=== PATIENT | female | born 2000 | race Hispanic/Latino ===

== ENCOUNTER 2023-07-24 12:01 | Observation (INO) | payer OTHER, SELFPAY ==
[2023-07-24 13:24] LABS: Absolute Lymphocytes (CBC) 2.2 K/uL (0.7-4.9); Lymphocytes % 10.7 % (15.3-44.8); MPV 7.9 fL (7.6-11.3); Platelets 327 thou/uL (152-406)
[2023-07-24 13:27] LABS: Specific Gravity > 1.030 (1.005-1.030)
[2023-07-24 13:29] LABS: Specific Gravity > 1.030 (1.005-1.030); Urine Bacteria None Seen /HPF (<20); Urine Bilirubin NEGATIVE (Negative); Urine Blood 2+ (Negative); Urine Clarity Extremely Turbid (Clear); Urine Color Yellow (Yellow); Urine Glucose NEGATIVE (Negative); Urine Mucus 3+ /HPF (None Seen); Urine Protein 2+ (Negative); Urine RBC >50 /HPF (None Seen); Urine Urobilinogen 1+ (Normal); Urine pH 6.5 (5.0-7.0)
[2023-07-24 14:30] LABS: Blood Morphology Comment NOT SEEN (NOT SEEN); Platelet Estimate ADEQ; White Blood Cell Scan OK (OK)
--- NOTE | 2023-07-24 14:31 | RAD REPORT ---
EXAM DESCRIPTION: CT - Abdomen Pelvis W Contrast - 07/24/2023 2:20 pm CLINICAL HISTORY: Abdominal pain COMPARISON: none. TECHNIQUE: Computed axial tomography of the abdomen pelvis was obtained. 100 cc Isovue-300 was admin istered intravenously. Oral contrast was not requested which limits evaluation of bowel and appendix All CT scans are performed using dose optimization technique as appropriate and may include automated exposure control or mA/KV adjustment according to patient size. FINDINGS: The liver, spleen, pancreas, adrenal and kidneys appear unremarkable. There is no evidence of diverticulitis. The appendix is retrocecal and extends superiorly. The appendix is thickened with stranding in the ad jacent fat as well as a small amount of ill-defined fluid. No abscess IMPRESSION: Appendicitis
[2023-07-24] MEDS ORDERED: NA CHLORIDE 0.9% 2,000 ML ONE (14:50)
[2023-07-24] MEDS ORDERED: KETOROLAC 30 MG/ML INJ ONE ×2 (14:50→16:51)
[2023-07-24] MEDS ORDERED: ONDANSETRON 4 MG/2 ML VIAL ONE ×2 (14:50→17:48)
[2023-07-24] MEDS ORDERED: CEFEPIME 1 GM/VIAL ONE (14:51)
[2023-07-24] MEDS ORDERED: NA CHLORIDE 0.9% 100 ML ONE (14:51)
--- NOTE | 2023-07-24 15:29 | ER ---
Nurse's Notes [facility] Name: Sravanthi Rogers Age: 22 yrs Sex: Female : 2000 Arrival Date: 07/24/2023 Time: 12:01 Bed 14 Private MD: Diagnosis: Acute appendicitis with localized peritonitis Presentation: 07/24 12:14 Chief complaint: Patient states: lower abdominal cramping onset last night. Pt states cm10 that her pain feels like contractions. Pt denies any urinary symptoms. Pt states 2 episodes of vomiting last night and 1 episode of diarrhea today. Coronavirus screen: Vaccine status: Patient reports being unvaccinated. Client denies travel out of the [place] in the last 14 days. Ebola Screen: Patient denies travel to an Ebola-affected area in the 21 days before illness onset. No symptoms or risks identified at this time. Initial Sepsis Screen: Does the patient meet any 2 criteria? No. Patient's initial sepsis screen is negative. Does the patient have a suspected source of infection? No. Patient's initial sepsis screen is negative. Risk Assessment: Do you want to hurt yourself or someone else? Patient reports no desire to harm self or others. Onset of symptoms was July 24, 2023. 12:14 Method Of Arrival: Ambulatory cm10 12:14 Acuity: SILVINA 3 cm10 Historical: - Allergies: 12:15 No Known Allergies; cm10 - Home Meds: 12:15 None [Active]; cm10 - PMHx: 12:15 None; cm10 - Immunization history:: Adult Immunizations unknown. - Social history:: Smoking status: Reported history of juuling and/or vaping. - Family history:: not pertinent, Mother has/had new symptoms. Screenin:45 Tuberculosis screening: No symptoms or risk factors identified. db 15:48 [facility] ED Fall Risk Assessment (Adult) History of falling in the last 3 months, db including since admission No falls in past 3 months (0 pts) Confusion or Disorientation No (0 pts) Score/Fall Risk Level 0 - 2 = Low Risk Oriented to surroundings, Maintained a safe environment. Abuse screen: Denies threats or abuse. Denies injuries from another. Nutritional screening: No deficits noted. Assessment: 13:45 Reassessment: Patient appears in no apparent distress at this time. Patient and/or db family updated on plan of care and expected duration. Pain level reassessed. Patient is alert, oriented x 3, equal unlabored respirations, skin warm/dry/pink. PATIENT TO THIS ROOM. 14:50 General: Appears uncomfortable, Behavior is cooperative, anxious. Pain: Complains of db pain in abdomen. Neuro: Level of Consciousness is awake, alert, obeys commands, Oriented to person, place, time, situation. GI: Bowel sounds Abd is soft Abdomen is tender to palpation in right lower quadrant and left lower quadrant Reports cramping. 15:46 Reassessment: Patient appears in no apparent distress at this time. Patient and/or db family updated on plan of care and expected duration. Pain level reassessed. Patient is alert, oriented x 3, equal unlabored respirations, skin warm/dry/pink. Vital Signs: 12:14 BP 143 / 67; Pulse 93; Resp 18; Temp 97.1; Pulse Ox 100% ; Weight 104.33 kg; Height 5 cm10 ft. 5 in. ; Pain 9/10; 14:11 BP 139 / 74; Pulse 84; Resp 16; Pulse Ox 99% on R/A; db 15:00 BP 144 / 78; Pulse 82; Resp 16; Pulse Ox 100% on R/A; db 12:14 Body Mass Index 38.27 (104.33 kg, 165.1 cm) cm10 12:14 Pain Scale: Adult cm10 ED Course: 12:02 Patient arrived in ED. rg4 12:02 Madison Osborn MD is Attending Physician. cp3 12:15 Triage completed. cm10 12:16 Arm band placed on Patient placed in an exam room, on a stretcher. cm10 13:12 CBC with Diff Sent. cm10 13:12 CMP Sent. cm10 13:12 Lipase Sent. cm10 13:12 Test, Urine Sent. cm10 13:12 Urinalysis w/ reflexes Sent. cm10 13:13 Inserted saline lock: 20 gauge in left antecubital area, using aseptic technique. Blood cm10 collected. 13:26 Zeny Calvert, JR is Primary Nurse. db 14:22 CT Abd/Pelvis - IV Contrast Only In Process Unspecified. EDMS 15:27 Sang De Los Santos MD is Hospitalizing Provider. cp3 15:48 No provider procedures requiring assistance completed. Patient admitted, IV remains in db place. Administered Medications: 14:30 Drug: NS 0.9% IV 1000 ml IV at 1 bolus Per protocol; 1000 mL bolus Route: IV; Rate: 1 db bolus; Site: left antecubital; 15:46 Follow up: Response: No adverse reaction; IV Status: Completed infusion db 14:30 Drug: TORadol - Ketorolac IVP 15 mg IVP once Route: IVP; Site: left antecubital; db 15:46 Follow up: Response: No adverse reaction db 14:30 Drug: Ondansetron IVP 4 mg IVP once; over 2 minutes Route: IVP; Site: left antecubital; db 15:46 Follow up: Response: No adverse reaction db 14:30 Drug: NS 0.9% IV 1000 ml IV at 1 bolus Per protocol; 1000 mL bolus Route: IV; Rate: 1 db bolus; Site: left antecubital; 15:45 Follow up: Response: No adverse reaction; IV Status: Completed infusion db 15:12 Drug: Cefepime IVPB 1 grams IVPB at 200 ml/hr once over 30 mins; (mix in NS 100 mL) db Route: IVPB; Rate: 200 ml/hr; Infused Over: 30 mins; Site: left antecubital; 15:35 Follow up: Response: No adverse reaction; IV Status: Completed infusion; IV Intake: db 100ml 15:35 Drug: metroNIDAZOLE IVPB 500 mg 100 ml IVPB at 200 ml/hr once over 30 mins Volume: 100 db ml; Route: IVPB; Rate: 200 ml/hr; Infused Over: 30 mins; Site: left antecubital; 15:45 Follow up: IV Status: Infusion continued upon admission db 15:35 Drug: morphine IVP or IV 4 mg IVP once over 4 mins Route: IVP; Infused Over: 4 mins; db Site: left antecubital; 15:45 Follow up: Response: No adverse reaction db Intake: 15:35 IV: 100ml; Total: 100ml. db Outcome: 15:28 Decision to Hospitalize by Provider. cp3 15:46 Patient left the ED. eb 15:48 Admitted to OR accompanied by nurse, via stretcher, with chart, db 15:48 Condition: stable 15:48 Instructed on the need for admit, Signatures: Dispatcher [employer] Madison Garner, MD MD cp3 Alex, Emely rg4 Tatiana Scruggs Danielle, RN RN db Ivelisse Miles RN RN cm10
--- NOTE | 2023-07-24 15:29 | EDPHYS ---
Physician Documentation [facility] Name: Sravanthi Rogers Age: 22 yrs Sex: Female : 2000 Arrival Date: 07/24/2023 Time: 12:01 Bed 14 Private MD: ED Physician Madison Osborn HPI: 07/24 12:28 This 22 yrs old Female presents to ER via Ambulatory with complaints of cp3 Abdominal Pain, Vomiting. 12:28 The patient presents to the emergency department with nausea, vomiting, abdominal pain. cp3 Onset: The symptoms/episode began/occurred suddenly, 1 day(s) ago. Possible causes: unknown. The symptoms are aggravated by nothing. The symptoms are alleviated by nothing. Associated signs and symptoms: Pertinent positives: abdominal pain, nausea. Severity of symptoms: At their worst the symptoms were moderate in the emergency department the symptoms are unchanged Pain is currently a 5 / 10. The patient has not experienced similar symptoms in the past. Historical: - Allergies: 12:15 No Known Allergies; cm10 - Home Meds: 12:15 None [Active]; cm10 - PMHx: 12:15 None; cm10 - Immunization history:: Adult Immunizations unknown. - Social history:: Smoking status: Reported history of juuling and/or vaping. - Family history:: not pertinent, Mother has/had new symptoms. ROS: 12:28 Eyes: Negative for injury, pain, redness, and discharge, ENT: Negative for injury, cp3 pain, and discharge, Neck: Negative for injury, pain, and swelling, Cardiovascular: Negative for chest pain, palpitations, and edema, Respiratory: Negative for shortness of breath, cough, wheezing, and pleuritic chest pain, Back: Negative for injury and pain, : Negative for injury, bleeding, discharge, and swelling, MS/Extremity: Negative for injury and deformity, Skin: Negative for injury, rash, and discoloration, Neuro: Negative for headache, weakness, numbness, tingling, and seizure, Psych: Negative for depression, anxiety, suicide ideation, homicidal ideation, and hallucinations, Allergy/Immunology: Negative for hives, rash, and allergies, Endocrine: Negative for neck swelling, polydipsia, polyuria, polyphagia, and marked weight changes, Hematologic/Lymphatic: Negative for swollen nodes, abnormal bleeding, and unusual bruising, 12:28 Constitutional: Positive for body aches, chills, fatigue, poor PO intake, 12:28 Abdomen/GI: Positive for abdominal pain, nausea and vomiting, Exam: 12:28 Constitutional: This is a well developed, well nourished patient who is awake, alert, cp3 and in no acute distress. Head/Face: Normocephalic, atraumatic. Eyes: Pupils equal round and reactive to light, extra-ocular motions intact. Lids and lashes normal. Conjunctiva and sclera are non-icteric and not injected. Cornea within normal limits. Periorbital areas with no swelling, redness, or edema. ENT: Nares patent. No nasal discharge, no septal abnormalities noted. Tympanic membranes are normal and external auditory canals are clear. Oropharynx with no redness, swelling, or masses, exudates, or evidence of obstruction, uvula midline. Mucous membranes moist. Neck: Trachea midline, no thyromegaly or masses palpated, and no cervical lymphadenopathy. Supple, full range of motion without nuchal rigidity, or vertebral point tenderness. No Meningismus. Chest/axilla: Normal chest wall appearance and motion. Nontender with no deformity. No lesions are appreciated. Cardiovascular: Regular rate and rhythm with a normal S1 and S2. No gallops, murmurs, or rubs. Normal PMI, no JVD. No pulse deficits. Respiratory: Lungs have equal breath sounds bilaterally, clear to auscultation and percussion. No rales, rhonchi or wheezes noted. No increased work of breathing, no retractions or nasal flaring. Back: No spinal tenderness. No costovertebral tenderness. Full range of motion. Skin: Warm, dry with normal turgor. Normal color with no rashes, no lesions, and no evidence of cellulitis. MS/ Extremity: Pulses equal, no cyanosis. Neurovascular intact. Full, normal range of motion. Neuro: Awake and alert, GCS 15, oriented to person, place, time, and situation. Cranial nerves II-XII grossly intact. Motor strength 5/5 in all extremities. Sensory grossly intact. Cerebellar exam normal. Normal gait. Psych: Awake, alert, with orientation to person, place and time. Behavior, mood, and affect are within normal limits. 12:28 Abdomen/GI: mild lower abdominal tenderness, no guarding or rebound, Vital Signs: 12:14 BP 143 / 67; Pulse 93; Resp 18; Temp 97.1; Pulse Ox 100% ; Weight 104.33 kg; Height 5 cm10 ft. 5 in. ; Pain 9/10; 14:11 BP 139 / 74; Pulse 84; Resp 16; Pulse Ox 99% on R/A; db 15:00 BP 144 / 78; Pulse 82; Resp 16; Pulse Ox 100% on R/A; db 12:14 Body Mass Index 38.27 (104.33 kg, 165.1 cm) cm10 12:14 Pain Scale: Adult cm10 MDM: 12:02 Patient medically screened. cp3 14:47 Differential diagnosis: Nonspecific abd pain, gastritis, cholecystitis, pancreatitis, cp3 appendicitis, diverticulitis, viral gastroenteritis. Data reviewed: vital signs, nurses notes, EMS record, intermediate records, lab test result(s), radiologic studies, CT scan. Independent interpretation of the following test(s) in the Emergency Department. 15:29 Consideration of Admission/Observation Patient was admitted/placed on observation. cp3 Management of patient was discussed with the following: Pile Driving Setter: general surgery dr lackey who is at bedside and will take patient to the OR from the ED. I considered the following discharge prescriptions or medication management in the emergency department Medications were administered in the Emergency Department. See MAR. Historians other than the Patient: Family Member: patients mother at bedside. Response to treatment: the patient's symptoms have mildly improved after treatment. ED course: ivf, cefepime and flagyl given. . 07/24 12:31 Order name: CBC with Diff; Complete Time: 14:49 cp3 07/24 14:53 Interpretation: Normal except: WBC 20.80; RBC 5.20; HGB 13.0; HCT 39.0; MCV 75.0; MCH cp3 24.9; MCHC 33.2; PLT 327; RDW 15.5; MPV 7.9; MATTHEW% 83.0; LYM% 10.7; MN% 5.7; EOSINOPHIL % 0.1; BASO% 0.5; NEUT A 17.3; LYMA 2.2; MNA 1.2; EOSA 0.0; BASOA 0.1. 07/24 12:31 Order name: CMP cp3 07/24 12:31 Order name: Lipase 3 07/24 12:31 Order name: Test, Urine; Complete Time: 14:20 [facility] 07/24 14:53 Interpretation: Abnormal: Urine SG > 1.030; URINE PREG NEG. 3 07/24 12:31 Order name: Urinalysis w/ reflexes; Complete Time: 14:20 3 07/24 13:27 Order name: CBC Smear Scan; Complete Time: 14:49 EDMS 07/24 14:21 Order name: Lactate w/ 2H reflex if indic. [facility] 07/24 14:21 Order name: Blood Culture Adult (2) [facility] 07/24 14:30 Order name: Manual Differential; Complete Time: 14:49 EDMS 07/24 12:31 Order name: CT Abd/Pelvis - IV Contrast Only; Complete Time: 14:49 [facility] 07/24 12:31 Order name: IV Saline Lock; Complete Time: 13:12 [facility] 07/24 12:31 Order name: Labs collected and sent; Complete Time: 13:12 [facility] 07/24 13:33 Order name: Labs - recollect needed: recollect chemistries/ hemolyzed per Janie; eb Complete Time: 13:53 07/24 14:03 Order name: Labs - recollect needed: recollect the recollect per Janie; Complete Time: eb 14:53 Administered Medications: 14:30 Drug: NS 0.9% IV 1000 ml IV at 1 bolus Per protocol; 1000 mL bolus Route: IV; Rate: 1 db bolus; Site: left antecubital; 15:46 Follow up: Response: No adverse reaction; IV Status: Completed infusion db 14:30 Drug: TORadol - Ketorolac IVP 15 mg IVP once Route: IVP; Site: left antecubital; db 15:46 Follow up: Response: No adverse reaction db 14:30 Drug: Ondansetron IVP 4 mg IVP once; over 2 minutes Route: IVP; Site: left antecubital; db 15:46 Follow up: Response: No adverse reaction db 14:30 Drug: NS 0.9% IV 1000 ml IV at 1 bolus Per protocol; 1000 mL bolus Route: IV; Rate: 1 db bolus; Site: left antecubital; 15:45 Follow up: Response: No adverse reaction; IV Status: Completed infusion db 15:12 Drug: Cefepime IVPB 1 grams IVPB at 200 ml/hr once over 30 mins; (mix in NS 100 mL) db Route: IVPB; Rate: 200 ml/hr; Infused Over: 30 mins; Site: left antecubital; 15:35 Follow up: Response: No adverse reaction; IV Status: Completed infusion; IV Intake: db 100ml 15:35 Drug: metroNIDAZOLE IVPB 500 mg 100 ml IVPB at 200 ml/hr once over 30 mins Volume: 100 db ml; Route: IVPB; Rate: 200 ml/hr; Infused Over: 30 mins; Site: left antecubital; 15:45 Follow up: IV Status: Infusion continued upon admission db 15:35 Drug: morphine IVP or IV 4 mg IVP once over 4 mins Route: IVP; Infused Over: 4 mins; db Site: left antecubital; 15:45 Follow up: Response: No adverse reaction db Disposition Summary: 07/24/23 15:28 Hospitalization Ordered Notes: Hospitalization Status: Observation cp3 Provider: Sang Lackey 3 Location: DAY SURGERY OTHER cp3 Condition: Stable cp3 Problem: new cp3 Symptoms: are unchanged cp3 Bed/Room Type: Standard cp3 Room Assignment: cp3 Diagnosis - Acute appendicitis with localized peritonitis cp3 Forms: - Medication Reconciliation Form cp3 - SBAR form cp3 - Leadership Thank You Letter cp3 Critical care time excluding procedures: 15:32 Critical care time: Bedside Care: 35 minutes. Total time: 35 minutes cp3 Signatures: Dispatcher [employer] Madiosn Garner MD MD cp3 Tatiana Scruggs Danielle RN RN Ivelisse Mendez RN RN cm10 Corrections: (The following items were deleted from the chart) 14:51 14:50 WBC 20.80; RBC 5.20; HGB 13.0; HCT 39.0; MCV 75.0; MCH 24.9; MCHC 33.2; PLT 327; cp3 RDW 15.5; MPV 7.9; MATTHEW% 83.0; LYM% 10.7; MN% 5.7; EOSINOPHIL % 0.1; BASO% 0.5; NEUT A 17.3; LYMA 2.2; MNA 1.2; EOSA 0.0; BASOA 0.1. cp3 14:53 14:51 Urine SG > 1.030; URINE PREG NEG. cp3 cp3 14:53 14:51 Abnormal: WBC 20.80; RBC 5.20; HGB 13.0; HCT 39.0; MCV 75.0; MCH 24.9; MCHC 33.2; cp3 PLT 327; RDW 15.5; MPV 7.9; MATTHEW% 83.0; LYM% 10.7; MN% 5.7; EOSINOPHIL % 0.1; BASO% 0.5; NEUT A 17.3; LYMA 2.2; MNA 1.2; EOSA 0.0; BASOA 0.1. cp3
[2023-07-24] MEDS ORDERED: BUPIVACAINE 0.25% PF 30 ML VIAL ONE (15:30)
[2023-07-24] MEDS ORDERED: LIDOCAINE 2% MPF 5 ML VIAL ONE (15:37)
[2023-07-24] MEDS ORDERED: propofoL 200 MG/20 ML VIAL IV ONE (15:37)
[2023-07-24] MEDS ORDERED: FENTANYL CITR 100 MCG/2 ML ONE (15:37)
[2023-07-24] MEDS ORDERED: ROCURONIUM 50 MG/5 ML VIAL IV ONE (15:37)
[2023-07-24] MEDS ORDERED: MIDAZOLAM HCL 2 MG/2 ML INJ ONE (15:38)
[2023-07-24] MEDS ORDERED: METRONIDAZOLE 500mg IVPB 500 MG/100 ML BAG IV ONE (15:50)
[2023-07-24] MEDS ORDERED: MORPHINE 4 MG/ML SYR ONE (15:50)
[2023-07-24] MEDS ORDERED: HYDROMORPHONE HCL 2 MG/ML inj ONE (15:59)
[2023-07-24] MEDS ORDERED: PIPER TAZO 3.375 GM in NA CHLORIDE 0.9% 100 ML IV ONE (16:00)
[2023-07-24] MEDS ORDERED: GLYCOPYRROLATE 0.2 MG/ML SYR ONE ×2 (16:37→16:49)
[2023-07-24] MEDS ORDERED: NEOSTIGMINE 1 MG/ML -10 ML VIAL ONE (16:49)
--- NOTE | 2023-07-24 17:13 | P.OP ---
Preoperative diagnosis: Acute Non-Perforated Appendicitis Postoperative diagnosis: Acute Non-Perforated Appendicitis Primary procedure: Laparoscopic Appendectomy Anesthesia: GETA + Local Estimated blood loss: <5cc Specimen: Vermiform Appendix Findings: Severe Adhesions - retrocecal appendix Complications: None Transferred to: Recovery Room Condition: Good
[2023-07-24 17:48] VITALS: BP 115/47; TEMP 97.5; O2SAT 99
[2023-07-24] MEDS ORDERED: HYDROMORPHONE HCL 1 MG/ML INJ ONE (17:48)
[2023-07-24] MEDS ORDERED: HYDROCODONE/APAP 7.5/325 MG TAB ONE (18:08)
--- NOTE | 2023-07-24 18:43 | OP ---
Date of Procedure: 07/24/2023 Surgeon: Sang De Los Santos MD, Preoperative Diagnosis: Acute nonperforated appendicitis. Postoperative Diagnosis: Acute nonperforated appendicitis. Procedure Performed: Laparoscopic appendectomy. Anesthesia: General endotracheal plus local 1% Marcaine. Estimated Blood Loss: Less than 5 mL. Specimen: Vermiform appendix. Findings: Severe adhesions consistent with findings on CT. There was no evidence of perforation. Complications: None. Disposition: Patient transferred to recovery room in good condition. Procedure In Detail: After informed consent was obtained, patient was brought to the operating room, prepped and draped in usual sterile fashion. After adequate anesthesia, the infraumbilical area was anesthetized with 0.25% Marcaine and sharply incised. A 5 mm trocar was placed under direct vision with no evidence of complication. Insufflation was obtained to 15 mmHg. At this time, there was no injury to vital structure upon entry into the abdomen. Two additional trocars were placed, 1 in the right lower quadrant, 1 in the left lower quadrant. Both of these were similarly anesthetized, sharply incised. A 5 mm trocar was placed under direct vision without evidence of complication. The umbilical trocar was then upsized to 12 mm under direct visualization with no evidence of complication. The patient positioned head down, right side up position. Ratcheted grasper was used to grasp the patient's appendix, found to be quite inflamed and retrocecal in position aspect of the retrocecal position. Mesoappendiceal window was created using a [place] retractor and a MEGAN 45 purple load fired across the base of the appendix with good approximation of tissues. No leakage at the end of the procedure at this point. I then removed the appendix from the colon using a combination of blunt dissection and LigaSure device to take the mesoappendix down at the same time. Used the LigaSure device with good hemostasis. No additional hemostat was required. The appendix was then placed in EndoCatch bag, removed through the umbilical trocar site and sent off for pathologic examination. The abdomen was then copiously irrigated and suctioned out completely dry. The patient was positioned back in neutral position. Remaining effluent was suctioned out. At this point, the 12 mm trocar site was then closed using a Hesham-Janeth suture passer with an 0 Vicryl in running interrupted fashion. Good approximation tissues. The abdomen was completely desufflated under direct visualization with no evidence of complication. The remaining trocar sites were then inspected under direct visualization after the abdomen was completely desufflated. They were removed under direct visualization. All skin edges were then copiously irrigated with closed with interrupted julien, and a sterile dressing placed over top. The patient tolerated the procedure well. No evidence of complication. Transferred to PACU in good condition. All counts were correct at the end of the case. WOEN/MIKE Voice ID: [id number] Report ID: [id number] MTDD
--- NOTE | 2023-07-24 20:23 | HP ---
Date of Admission: 07/24/2023 Brief History Of Present Illness: The patient is a 22-year-old female who had an acute onset of abdo emi pain in the periumbilical region, now located in the right lower quadrant beginning earlier tod ay. She had a baby approximately 3 months ago, otherwise has no other complaints related. Past Medical History: Anxiety. Past Surgical History: Negative. Allergies: NO KNOWN DRUG ALLERGIES. Medications: She takes vitamins and control. She cannot recall details of this. Social History: She vapes. She smokes marijuana recreationally. Denies any other recreational drug use. Denies alcohol use. Review of Systems: Ten-point review of systems other than HPI, she admits to fever and chills. Otherwise, unremarkable. Physical Examination: General: She is awake, alert, and oriented. Psychiatric: She is crying and sobbing during my examination. Her mother is present, who assists wi th information. HEENT: She is otherwise normocephalic. Sclerae are anicteric. Mucous membranes are moist. Orophar ynx clear. Neck: Supple without JVD. Chest: Normal expansion and excursion. Cardiovascular: Regular rhythm. Pulmonary: Clear to auscultation bilaterally. Abdomen: Soft with positive right lower quadrant tenderness at McBurney's point. Positive rebound, positive guarding, positive focal peritonitis. Extremities: No clubbing, cyanosis, or edema. Skin: Warm, dry. Laboratory Data: Reveals a white blood cell count of 20.8, hemoglobin is 13.3, hematocrit of 39.0, p latelet count is 327, neutrophils are 83%. Sodium is currently pending. Urinalysis shows turbid yel low, 4+ ketones, 2+ blood, leukocyte esterase was negative, red blood cells greater than 50, squamous cells 20-50. test was negative. A CT scan of the abdomen and pelvis was performed, offic ially read as appendicitis, specifically the appendix is retrocecal and extend superiorly. The appen choco is thickened with stranding in the adjacent fat as well as a small amount of ill-defined fluid. No abscess. Assessment And Plan: This is a 22-year-old female who comes in with signs and symptoms of acute nonp erforated appendicitis. 1.IV fluid hydration. 2.Antibiotic coverage. 3.I have explained the risks, benefits, and alternatives of laparoscopic, possible open appendectomy , including, but not limited to bleeding, infection, damage to surrounding tissues, need for further operative procedures, troubles in the perioperative period including, but not limited to anesthesia-r elated complications and other unforeseen complications. The patient agrees to proceed as indicated. OWEN/MIKE Voice ID: [id number]
== END 2023-07-24 18:49 | disposition home or self-care (01) ==
LOC: ER 12:01 → ERHOLD 16:18
PROVIDERS: ADMIT Surgery; ATTEND Surgery
PROC: 0DTJ4ZZ Resection of Appendix, Percutaneous Endoscopic Approach (ICD-10-PCS; principal; 2023-07-24 15:00)
DX: K35.80 Unspecified acute appendicitis (principal); F17.290 Nicotine dependence, other tobacco product, uncomplicated
CPT/HCPCS: 96365; 96361; 87040 ×2; 85025; 81001; 36415; 81025; 83605; 88304; 74177; 96375; 99285; 44970; Q9967; J2704; J2710; J2543; J2001; J2250; J1170; J3010; J2405 ×2; G0378; J7030; J0692